=== PATIENT | female | born 1990 | race American Indian/Alaskan Native ===

== ENCOUNTER 2018-09-21 11:41 | Emergency (ER) | payer SELFPAY ==
[2018-09-21 12:03] VITALS: TEMP 98.5
[2018-09-21] MEDS ORDERED: Sodium Chloride 0.9% 1,000 ML IV SCH (13:00)
[2018-09-21 13:07] LABS: BASO % 0.7 % (0.0-2.0); EOS # 0.1 K/uL (0.0-0.7); EOS % 1.9 % (0.0-4.0); HEMOGLOBIN 11.4 g/dL (12.0-16.0); LYMPH # 3.2 K/uL (1.0-4.3); LYMPH % 47.7 % (20.0-40.0); MEAN CELL VOLUME 73.8 fl (81.0-99.0); MEAN CORPUSCULAR HEMOGLOBIN 23.7 pg (27.0-31.0); MEAN CORPUSCULAR HGB CONC 32.1 g/dL (33.0-37.0); MONO # 0.6 K/uL (0.0-0.8); MONO % 9.5 % (0.0-10.0); NEUT # 2.7 K/uL (1.8-7.0); NEUT % 40.2 % (50.0-75.0); NRBC % 0.1 % (0.0-0.0); RBC 4.81 Mil/uL (3.80-5.20); WHITE BLOOD COUNT 6.7 K/uL (4.8-10.8)
[2018-09-21 13:17] LABS: SQUAMOUS EPITHIAL 20 /hpf (0-5); URINE BILIRUBIN NEGATIVE (NEGATIVE); URINE BLOOD NEGATIVE (NEGATIVE); URINE CLARITY CLOUDY (Clear); URINE COLOR YELLOW (YELLOW); URINE GLUCOSE (UA) NEG (Normal); URINE LEUKOCYTE ESTERASE NEG Leu/uL (Negative); URINE PROTEIN 100 mg/dL (NEGATIVE)
[2018-09-21 13:19] LABS: ALB/GLOB RATIO 1.1 (1.0-2.1); ALBUMIN 3.9 g/dL (3.5-5.0); ALT/SGPT 28 U/L (9-52); AST/SGOT 40 U/L (14-36); BLOOD UREA NITROGEN 8 mg/dl (7-17); CALCIUM 9.8 mg/dL (8.4-10.2); GFR NON-AFRICAN AMERICAN > 60
[2018-09-21 17:23] VITALS: BP 147/87; RESP 18; O2SAT 99
[2018-09-21 17:31] VITALS: PULSE 118
--- NOTE | 2018-09-21 22:16 | CARD ---
APPROVED REPORT Date of service: 09/21/2018 EKG Measurement Heart [id number] IN 144P [id number] <Conclusion> Sinus tachycardia Otherwise normal ECG
--- NOTE | 2018-10-07 20:03 | ED PDOC ---
HPI: Abdomen Time Seen by Provider: 09/21/18 11:52 Chief Complaint (Nursing): Abdominal Pain History Per: Patient Onset/Duration Of Symptoms: Days Outside of [place] travel?: No Current Symptoms Are (Timing): Still Present Associated Symptoms: denies: Fever, Chills, Nausea, Vomiting Past Medical History Vital Signs: Last Vital Signs Temp 98.5 F 09/21/18 17:23 Pulse 118 H 09/21/18 17:23 Resp 18 09/21/18 17:23 BP 147/87 09/21/18 17:23 Pulse Ox 99 09/21/18 17:23 - Medical History PMH: No Chronic Diseases - Family History Family History: States: Unknown Family Hx Denies: No Known Family Hx - Immunization History Hx Tetanus Toxoid Vaccination: No Hx Influenza Vaccination: No Hx Pneumococcal Vaccination: No - Home Medications Home Medications: Ambulatory Orders Medication Instructions Recorded Propranolol [Inderal] 20 mg PO BID #60 tab 10/07/18 methIMAzole [Tapazole] 30 mg PO DAILY #90 tab 10/07/18 - Allergies Allergies/Adverse Reactions: Allergies Allergy/AdvReac Type Severity Reaction Status Date / Time No Known Allergies Allergy Verified 09/21/18 12:03 Review of Systems Constitutional: Negative for: Fever, Chills, Weight loss Gastrointestinal: Negative for: Nausea, Vomiting, Diarrhea Physical Exam - Reviewed Vital Signs Reviewed: Yes - Physical Exam Appears: Positive for: Well, Non-toxic Head Exam: Positive for: ATRAUMATIC Skin: Positive for: Normal Color, Warm, Dry Eye Exam: Positive for: Normal appearance, EOMI, PERRL Cardiovascular/Chest: Positive for: Regular Rate, Rhythm, Tachycardia. Negative for: Murmur Respiratory: Positive for: Normal Breath Sounds Gastrointestinal/Abdominal: Positive for: Soft, Tenderness (Minimal diffuse lower abdominal tenderness ) - Laboratory Results Result Diagrams: 09/21/18 12:30 09/21/18 12:30 - ECG O2 Sat by Pulse Oximetry: 99 Medical Decision Making Medical Decision Making: IV access established, labs sent, IVF given, IV Toradol given. Pt. feeling much better, abdomen soft with No tenderness. Pt. eating and drinking. Repeat HR 118-124. EKG ordered, ST, no arrhythmia. Pt. reports she's been told her HR has been high in past but no dx. Pt. denies palipations, cp. TSH ordered. TSH low, c/w hyperthyroid which explains tachycardia; pt. otherwise feels well. Stressed importance of close f/u with endocrine. Pt. agrees and will arrange f/u this week. Rx given Disposition - Clinical Impression Clinical Impression: Hyperthyroidism, Abdominal pain - Disposition Referrals: Pooja Gomez MD [Medical Doctor] - Disposition Time: 17:30 Condition: STABLE Instructions: Hyperthyroidism (Overactive Thyroid), Acute Abdomen (Belly Pain) Forms: [employer] (Slovak)
== END 2018-09-21 17:24 | disposition home or self-care (01) ==
LOC: H.ER 11:41
DX: E05.90 Thyrotoxicosis, unspecified without thyrotoxic crisis or storm (principal); R10.9 Unspecified abdominal pain; Z79.899 Other long term (current) drug therapy
CPT/HCPCS: 80053; 81003; 81025; 84443; 85025; 93005; 96360; 99284; J7030

== ENCOUNTER 2018-10-05 16:25 | Inpatient (IN) | payer MEDICAID, OTHER ==
[2018-10-05] MEDS ORDERED: Sodium Chloride 0.9% 1,000 ML IV STA ×2 (17:57→20:01)
[2018-10-05 18:59] LABS: BASO # 0.1 K/uL (0.0-0.2); EOS # 0.1 K/uL (0.0-0.7); EOS % 0.9 % (0.0-4.0); HEMOGLOBIN 11.8 g/dL (12.0-16.0); LYMPH # 2.4 K/uL (1.0-4.3); LYMPH % 41.6 % (20.0-40.0); MEAN CELL VOLUME 72.7 fl (81.0-99.0); MEAN CORPUSCULAR HGB CONC 32.9 g/dL (33.0-37.0); MEAN PLATELET VOLUME 7.4 fl (7.2-11.7); MONO # 0.5 K/uL (0.0-0.8); MONO % 8.6 % (0.0-10.0); NEUT # 2.7 K/uL (1.8-7.0); NEUT % 47.9 % (50.0-75.0); NRBC % 0.3 % (0.0-0.0); RBC 4.94 Mil/uL (3.80-5.20); RED CELL DISTRIBUTION WIDTH 13.8 % (11.5-14.5); WHITE BLOOD COUNT 5.7 K/uL (4.8-10.8)
[2018-10-05 19:06] LABS: VENOUS BLOOD GAS BASE EXCESS 3.1 mmol/L (0.0-2.0); VENOUS BLOOD GAS PCO2 51 mmHg (40-60); VENOUS BLOOD GAS PO2 37 mm/Hg (30-55); VENOUS BLOOD PH 7.37 (7.32-7.43)
--- NOTE | 2018-10-05 19:14 | ED PDOC ---
HPI: Chest Pain Time Seen by Provider: 10/05/18 17:15 Chief Complaint (Nursing): Chest Pain Chief Complaint (Provider): Chest Pain History Per: Patient History/Exam Limitations: no limitations Additional Complaint(s): 28 years old female returns to ED for 2nd visit for evaluation of chest pain. Patient reports she was seen here in this ED a few weeks ago for the same complaint of chest pain with mild dizziness and mild shortness of breath. She states last time she was here, she had elevated heart rate and was given metoprolol. Patient reports symptoms did not improve, which prompted ED visit again. She denies any recent travel, sick contact, leg swelling, cough or any other new symptoms. PMD: non provided Past Medical History Reviewed: Historical Data, Nursing Documentation, Vital Signs Vital Signs: Last Vital Signs Temp 98 F 10/05/18 16:36 Pulse 88 10/05/18 17:25 Resp 18 10/05/18 16:36 BP 152/90 H 10/05/18 16:36 Pulse Ox 99 10/05/18 16:36 - Medical History PMH: No Chronic Diseases - Surgical History Surgical History: No Surg Hx - Family History Family History: States: Unknown Family Hx - Social History Current smoker - smoking cessation education provided: No Alcohol: Social Drugs: Cannabis (Marijuana) - Immunization History Hx Tetanus Toxoid Vaccination: No Hx Influenza Vaccination: No Hx Pneumococcal Vaccination: No - Home Medications Home Medications: Ambulatory Orders Medication Instructions Recorded Propranolol [Inderal] 20 mg PO BID 14 Days #28 tab 09/21/18 - Allergies Allergies/Adverse Reactions: Allergies Allergy/AdvReac Type Severity Reaction Status Date / Time No Known Allergies Allergy Verified 09/21/18 12:03 Review of Systems ROS Statement: Except As Marked, All Systems Reviewed And Found Negative Cardiovascular: Positive for: Chest Pain Respiratory: Positive for: Shortness of Breath. Negative for: Cough Musculoskeletal: Negative for: Leg Pain (or swelling) Neurological: Positive for: Dizziness Physical Exam - Reviewed Nursing Documentation Reviewed: Yes Vital Signs Reviewed: Yes - Physical Exam Appears: Positive for: Non-toxic, No Acute Distress Head Exam: Positive for: ATRAUMATIC, NORMOCEPHALIC Skin: Positive for: Normal Color, Warm, Dry Eye Exam: Positive for: Normal appearance, EOMI, PERRL Neck: Positive for: Normal, Painless ROM, Supple Cardiovascular/Chest: Positive for: Regular Rate, Rhythm, Tachycardia (on monitor) Respiratory: Positive for: Normal Breath Sounds. Negative for: Wheezing Gastrointestinal/Abdominal: Positive for: Normal Exam, Soft. Negative for: Tenderness Back: Positive for: Normal Inspection. Negative for: L CVA Tenderness, R CVA Tenderness Extremity: Positive for: Normal ROM. Negative for: Pedal Edema, Swelling Neurologic/Psych: Positive for: Alert, Oriented (x3) - Laboratory Results Result Diagrams: 10/05/18 18:45 10/05/18 18:45 - ECG O2 Sat by Pulse Oximetry: 99 (RA) Pulse Ox Interpretation: Normal Medical Decision Making Medical Decision Making: Time: 1748 A/P: workup for tachycardia with dizziness and shortness of breath --No physical exam indication for lower extremity DVT --Based on unresolved symptoms, will send d-dimer and troponin. If positive, will get chest CT --Reevaluation 21:45 Pt with elevated T4 and T3. Spoke with Dr. Gomez (commercial installer) who recommends admission and beginning methimazole (20 TID). PT to be admitted to the hospitalist, Dr. Freitas. Scribe Attestation: Documented by Yazmin Weems, acting as a scribe for Brittani Celestin MD. Provider Scribe Attestation: All medical record entries made by the Scribe were at my direction and personally dictated by me. I have reviewed the chart and agree that the record a ccurately reflects my personal performance of the history, physical exam, medical decision making, and the department course for this patient. I have also personally directed, reviewed, and agree with the discharge instructions and disposition. Disposition - Disposition Forms: Medical Envelope (Welsh)
[2018-10-05 19:18] LABS: BLOOD UREA NITROGEN 9 mg/dl (7-17); CALCIUM 9.9 mg/dL (8.4-10.2); GFR NON-AFRICAN AMERICAN > 60
[2018-10-05 19:29] LABS: INR 1.2; PROTHROMBIN TIME 13.3 Seconds (9.8-13.1)
[2018-10-05 19:31] LABS: PARTIAL THROMBOPLASTIN TIME 34.6 Seconds (25.6-37.1)
[2018-10-05 19:38] LABS: D DIMER < 200 ng/mlDDU (0-230)
[2018-10-05 20:29] LABS: SQUAMOUS EPITHIAL 4 /hpf (0-5); URINE BILIRUBIN NEGATIVE (NEGATIVE); URINE CLARITY SLIGHTY-CLOUDY (Clear); URINE COLOR YELLOW (YELLOW); URINE GLUCOSE (UA) NEG (Normal); URINE LEUKOCYTE ESTERASE NEG Leu/uL (Negative); URINE PROTEIN NEGATIVE (NEGATIVE); URINE UROBILINOGEN 0.2-1.0 mg/dL (0.2-1.0)
[2018-10-05 20:32] LABS: URINE BLOOD MODERATE (NEGATIVE)
[2018-10-05 20:44] LABS: BARBITURATES, UR NEGATIVE (NEGATIVE); BENZODIAZEPINES, UR NEGATIVE (NEGATIVE); OPIATES, UR NEGATIVE (NEGATIVE); PHENCYCLIDINE, UR NEGATIVE (NEGATIVE)
[2018-10-05 21:09] LABS: T3 5.88 nmol/L (1.49-2.60)
[2018-10-05 21:23] LABS: T4 > 24.9 ug/dl (5.5-11.0)
--- NOTE | 2018-10-05 22:58 | CP.PCM.HP ---
<Sultan Karey - Last Filed: 10/06/18 00:42> History of Present Illness - History of Present Illness History of Present Illness: CC: Chest pain HPI: 28 yo female with pmhx of anemia and tachyarrhythmia presents to [facility] ED with complaints of intermittent chest pain (4/10 initially, now 2/10 during exam) that radiates to left arm associated chest palpitation, dizziness and mild shortness of breath for 2 weeks. States chest pain is exacerbated by eating sugary food and alleviated by taking warm shower. Reports + tremor for over a year and feeling warm for few weeks. Denies any weight loss, diarrhea, nausea,vomiting, blurry vision, PND or leg swelling. Denies taking any herbal supplements or weight loss products. Patient has hx tachycardia 4 years ago during her and states she had EKG and normal echocardiogram but never been on any medications. Patient was seen in [facility] ED on 09/21/18, found to have low TSH and tachycardia. Patient was dischared home with Propranonol 20 mg BID and was advised to f/u with technical aid. Patient made appointment for 10/06/[address] Thomas at [place]. ROS: 12 systems reviewed and negative except as mentioned in HPI PMD: None Pmhx: anemia, tachyarrhythmia Pshx: none Familyhx: Mother: DMII, maternal aunt: HTN, denies any family hx thyroid CA. Social hx: Denies smoking cigarettes or drugs uses. EtOH use socially. Homemake r, lives with . Medications: propranolol 20 mg po bid and multivitamin. ED Course: CBC, BMP, PT/INR, D-dimer and UDS: unremarkable T4: >24.9, Free T3: 5.88, TSH on 09/21/18: <0.02 EKG: sinus tachy @[address]/T wave changes CXR: unremarkable Endocrine consult: Dr. Gomez IV fluids bolus 2 liters, Methimazole 20 mg. Present on Admission - Present on Admission Any Indicators Present on Admission: No Review of Systems - Review of Systems Review of Systems: ROS: 12 systems reviewed and negative except as mentioned in HPI Past Patient History - Past Social History Alcohol: Social Drugs: Cannabis (Marijuana) - PSYCHIATRIC Hx Substance Use: Yes - SURGICAL HISTORY Hx Surgeries: No - ANESTHESIA Hx Anesthesia: No Meds Allergies/Adverse Reactions: Allergies Allergy/AdvReac Type Severity Reaction Status Date / Time No Known Allergies Allergy Verified 09/21/18 12:03 Physical Exam - Constitutional Appears: Well, Non-toxic, No Acute Distress - Head Exam Head Exam: ATRAUMATIC, NORMAL INSPECTION, NORMOCEPHALIC - Eye Exam Eye Exam: EOMI, Normal appearance, PERRL. absent: Periorbital swelling, Scleral icterus Pupil Exam: PERRL Additional comments: No exophthalmos or lid lag seen - ENT Exam ENT Exam: Mucous Membranes Moist, Normal Oropharynx, TM's Normal Bilaterally Additional comments: B/L mild swelling 2+ tonsils. No erythema or exudate - Neck Exam Neck exam: Positive for: Full Rom, Normal Inspection. Negative for: Lymphadenopathy, Tenderness, Thyromegaly - Respiratory Exam Respiratory Exam: Clear to Auscultation Bilateral, NORMAL BREATHING PATTERN. absent: Rhonchi, Wheezes - Cardiovascular Exam Cardiovascular Exam: Tachycardia, REGULAR RHYTHM, +S1, +S2 - GI/Abdominal Exam GI & Abdominal Exam: Normal Bowel Sounds, Soft. absent: Guarding, Rebound, Tenderness - Extremities Exam Extremities exam: Positive for: full ROM, normal capillary refill, normal inspection, pedal pulses present. Negative for: calf tenderness, pedal edema - Back Exam Back exam: NORMAL INSPECTION. absent: CVA tenderness (L), CVA tenderness (R) - Neurological Exam Neurological exam: Alert, CN II-XII Intact, Oriented x3 - Psychiatric Exam Psychiatric exam: Normal Affect, Normal Mood - Skin Skin Exam: Dry, Normal Color, Warm Results - Vital Signs Recent Vital Signs: Last Vital Signs Temp 98 F 10/05/18 16:36 Pulse 116 H 10/05/18 20:11 Resp 21 10/05/18 20:11 BP 111/59 L 10/05/18 20:11 Pulse Ox 99 10/05/18 21:49 - Labs Result Diagrams: 10/05/18 18:45 10/05/18 18:45 Labs: Laboratory Results - last 24 hr 10/05/18 10/05/18 10/05/18 18:45 18:45 18:45 WBC 5.7 RBC 4.94 Hgb 11.8 L Hct 35.9 MCV 72.7 L MCH 24.0 L MCHC 32.9 L RDW 13.8 Plt Count 307 MPV 7.4 Neut % (Auto) 47.9 L Lymph % (Auto) 41.6 H Kent % (Auto) 8.6 Eos % (Auto) 0.9 Baso % (Auto) 1.0 Neut # (Auto) 2.7 Lymph # (Auto) 2.4 Kent # (Auto) 0.5 Eos # (Auto) 0.1 Baso # (Auto) 0.1 PT 13.3 H INR 1.2 APTT 34.6 D-Dimer, Quantitative < 200 pO2 VBG pH VBG pCO2 VBG HCO3 VBG Total CO2 VBG O2 Sat (Calc) VBG Base Excess VBG Potassium Glucose Lactate FiO2 Sodium 140 Potassium 4.2 Chloride 103 Carbon Dioxide 27 Anion Gap 14 BUN 9 Creatinine 0.4 L Est GFR ( Amer) > 60 Est GFR (Non-Af Amer) > 60 Random Glucose 106 H Calcium 9.9 Troponin I < 0.0120 Thyroxine (T4) Total T3 Venous Blood Potassium Urine Color Urine Clarity Urine pH Ur Specific [place] Urine Protein Urine Glucose (UA) Urine Ketones Urine Blood Urine Nitrate Urine Bilirubin Urine Urobilinogen Ur Leukocyte Esterase Urine RBC (Auto) Urine Microscopic WBC Ur Squamous Epith Cells Urine Opiates Screen Urine Methadone Screen Ur Barbiturates Screen Ur Phencyclidine Scrn Ur Amphetamines Screen U Benzodiazepines Scrn U Oth Cocaine Metabols U Cannabinoids Screen Blood Type Blood Type Confirm Antibody Screen BBK History Checked 10/05/18 10/05/18 10/05/18 18:45 19:01 19:48 WBC RBC Hgb Hct MCV MCH MCHC RDW Plt Count MPV Neut % (Auto) Lymph % (Auto) Kent % (Auto) Eos % (Auto) Baso % (Auto) Neut # (Auto) Lymph # (Auto) Kent # (Auto) Eos # (Auto) Baso # (Auto) PT INR APTT D-Dimer, Quantitative pO2 37 VBG pH 7.37 VBG pCO2 51 VBG HCO3 26.6 VBG Total CO2 31.1 H VBG O2 Sat (Calc) 75.8 H VBG Base Excess 3.1 H VBG Potassium 3.9 Glucose 105 Lactate 0.9 FiO2 21.0 Sodium 138.0 Potassium Chloride 104.0 Carbon Dioxide Anion Gap BUN Creatinine Est GFR ( Amer) Est GFR (Non-Af Amer) Random Glucose Calcium Troponin I Thyroxine (T4) Total T3 Venous Blood Potassium 3.9 Urine Color Urine Clarity Urine pH Ur Specific [place] Urine Protein Urine Glucose (UA) Urine Ketones Urine Blood Urine Nitrate Urine Bilirubin Urine Urobilinogen Ur Leukocyte Esterase Urine RBC (Auto) Urine Microscopic WBC Ur Squamous Epith Cells Urine Opiates Screen Urine Methadone Screen Ur Barbiturates Screen Ur Phencyclidine Scrn Ur Amphetamines Screen U Benzodiazepines Scrn U Oth Cocaine Metabols U Cannabinoids Screen Blood Type B POSITIVE Blood Type Confirm B POSITIVE Antibody Screen Negative BBK History Checked No verified bt 10/05/18 10/05/18 10/05/18 20:15 20:15 20:18 WBC RBC Hgb Hct MCV MCH MCHC RDW Plt Count MPV Neut % (Auto) Lymph % (Auto) Kent % (Auto) Eos % (Auto) Baso % (Auto) Neut # (Auto) Lymph # (Auto) Kent # (Auto) Eos # (Auto) Baso # (Auto) PT INR APTT D-Dimer, Quantitative pO2 VBG pH VBG pCO2 VBG HCO3 VBG Total CO2 VBG O2 Sat (Calc) VBG Base Excess VBG Potassium Glucose Lactate FiO2 Sodium Potassium Chloride Carbon Dioxide Anion Gap BUN Creatinine Est GFR ( Amer) Est GFR (Non-Af Amer) Random Glucose Calcium Troponin I Thyroxine (T4) > 24.9 H Total T3 5.88 H Venous Blood Potassium Urine Color Yellow Urine Clarity Slighty-cloudy Urine pH 6.0 Ur Specific [place] 1.017 Urine Protein Negative Urine Glucose (UA) Neg Urine Ketones Negative Urine Blood Moderate Urine Nitrate Negative Urine Bilirubin Negative Urine Urobilinogen 0.2-1.0 Ur Leukocyte Esterase Neg Urine RBC (Auto) 10 H Urine Microscopic WBC 1 Ur Squamous Epith Cells 4 Urine Opiates Screen Negative Urine Methadone Screen Negative Ur Barbiturates Screen Negative Ur Phencyclidine Scrn Negative Ur Amphetamines Screen Negative U Benzodiazepines Scrn Negative U Oth Cocaine Metabols Negative U Cannabinoids Screen Negative Blood Type Blood Type Confirm Antibody Screen BBK History Checked Assessment & Plan - Assessment and Plan (Free Text) Assessment: Assessment: 28 yo female with pmhx of anemia and tachyarrhythmia presents to [facility] with complaints of intermittent chest pain (4/10) that radiates to left arm, chest palpitation, dizziness and mild shortness of breath for 2 weeks. Patient's TSH was <0.02 two weeks ago and today, T4: >24.9, Free T3: 5.88. Patient is admitted for symptomatic hyperthyroidism. Plan: Chest pain and tachyarrhythmia likely secondary to symptomatic hyperthyroidism -T4: >24.9, Free T3: 5.88, TSH on 09/21/18: <0.02 -EKG: sinus tachy @[address]/T wave changes -Endocrine Consult, Dr. Gomez, consult appreciated -Methimazole 20 mg po TID -Propranolol 20 mmg po TID -F/U CMP, TSH, T4, TSI, TPO ab, AM cortisol -f/u Thryoid US -troponin x 1 neg, D-dimer neg. Microcytic anemia -H&H 11.8/35.9 -stable -f/u Outpatient for workup DVT prophylaxis: -Lovenox 40 mg SC GI prophylaxis: -Protonix 40 mg po QD Diet: -regular diet Code status: -full code Patient seen, examined and plan d/w Dr. Fortino Eden, [id number] <Willie Freitas - Last Filed: 10/06/18 02:48> Results - Vital Signs Recent Vital Signs: Last Vital Signs Temp 98.2 F 10/05/18 23:13 Pulse 112 H 10/05/18 23:13 Resp 24 10/05/18 23:13 BP 107/88 10/05/18 23:13 Pulse Ox 100 10/05/18 23:13 - Labs Result Diagrams: 10/05/18 18:45 10/05/18 18:45 Labs: Laboratory Results - last 24 hr 10/05/18 10/05/18 10/05/18 18:45 18:45 18:45 WBC 5.7 RBC 4.94 Hgb 11.8 L Hct 35.9 MCV 72.7 L MCH 24.0 L MCHC 32.9 L RDW 13.8 Plt Count 307 MPV 7.4 Neut % (Auto) 47.9 L Lymph % (Auto) 41.6 H [place] % (Auto) 8.6 Eos % (Auto) 0.9 Baso % (Auto) 1.0 Neut # (Auto) 2.7 Lymph # (Auto) 2.4 Kent # (Auto) 0.5 Eos # (Auto) 0.1 Baso # (Auto) 0.1 PT 13.3 H INR 1.2 APTT 34.6 D-Dimer, Quantitative < 200 pO2 VBG pH VBG pCO2 VBG HCO3 VBG Total CO2 VBG O2 Sat (Calc) VBG Base Excess VBG Potassium Glucose Lactate FiO2 Sodium 140 Potassium 4.2 Chloride 103 Carbon Dioxide 27 Anion Gap 14 BUN 9 Creatinine 0.4 L Est GFR ( Amer) > 60 Est GFR (Non-Af Amer) > 60 Random Glucose 106 H Calcium 9.9 Troponin I < 0.0120 Thyroxine (T4) Total T3 Venous Blood Potassium Urine Color Urine Clarity Urine pH Ur Specific [place] Urine Protein Urine Glucose (UA) Urine Ketones Urine Blood Urine Nitrate Urine Bilirubin Urine Urobilinogen Ur Leukocyte Esterase Urine RBC (Auto) Urine Microscopic WBC Ur Squamous Epith Cells Urine Opiates Screen Urine Methadone Screen Ur Barbiturates Screen Ur Phencyclidine Scrn Ur Amphetamines Screen U Benzodiazepines Scrn U Oth Cocaine Metabols U Cannabinoids Screen Blood Type Blood Type Confirm Antibody Screen BBK History Checked 10/05/18 10/05/18 10/05/18 18:45 19:01 19:48 WBC RBC Hgb Hct MCV MCH MCHC RDW Plt Count MPV Neut % (Auto) Lymph % (Auto) [place] % (Auto) Eos % (Auto) Baso % (Auto) Neut # (Auto) Lymph # (Auto) [place] # (Auto) Eos # (Auto) Baso # (Auto) PT INR APTT D-Dimer, Quantitative pO2 37 VBG pH 7.37 VBG pCO2 51 VBG HCO3 26.6 VBG Total CO2 31.1 H VBG O2 Sat (Calc) 75.8 H VBG Base Excess 3.1 H VBG Potassium 3.9 Glucose 105 Lactate 0.9 FiO2 21.0 Sodium 138.0 Potassium Chloride 104.0 Carbon Dioxide Anion Gap BUN Creatinine Est GFR ( Amer) Est GFR (Non-Af Amer) Random Glucose Calcium Troponin I Thyroxine (T4) Total T3 Venous Blood Potassium 3.9 Urine Color Urine Clarity Urine pH Ur Specific [place] Urine Protein Urine Glucose (UA) Urine Ketones Urine Blood Urine Nitrate Urine Bilirubin Urine Urobilinogen Ur Leukocyte Esterase Urine RBC (Auto) Urine Microscopic WBC Ur Squamous Epith Cells Urine Opiates Screen Urine Methadone Screen Ur Barbiturates Screen Ur Phencyclidine Scrn Ur Amphetamines Screen U Benzodiazepines Scrn U Oth Cocaine Metabols U Cannabinoids Screen Blood Type B POSITIVE Blood Type Confirm B POSITIVE Antibody Screen Negative BBK History Checked No verified bt 10/05/18 10/05/18 10/05/18 20:15 20:15 20:18 WBC RBC Hgb Hct MCV MCH MCHC RDW Plt Count MPV Neut % (Auto) Lymph % (Auto) [place] % (Auto) Eos % (Auto) Baso % (Auto) Neut # (Auto) Lymph # (Auto) [place] # (Auto) Eos # (Auto) Baso # (Auto) PT INR APTT D-Dimer, Quantitative pO2 VBG pH VBG pCO2 VBG HCO3 VBG Total CO2 VBG O2 Sat (Calc) VBG Base Excess VBG Potassium Glucose Lactate FiO2 Sodium Potassium Chloride Carbon Dioxide Anion Gap BUN Creatinine Est GFR ( Amer) Est GFR (Non-Af Amer) Random Glucose Calcium Troponin I Thyroxine (T4) > 24.9 H Total T3 5.88 H Venous Blood Potassium Urine Color Yellow Urine Clarity Slighty-cloudy Urine pH 6.0 Ur Specific [place] 1.017 Urine Protein Negative Urine Glucose (UA) Neg Urine Ketones Negative Urine Blood Moderate Urine Nitrate Negative Urine Bilirubin Negative Urine Urobilinogen 0.2-1.0 Ur Leukocyte Esterase Neg Urine RBC (Auto) 10 H Urine Microscopic WBC 1 Ur Squamous Epith Cells 4 Urine Opiates Screen Negative Urine Methadone Screen Negative Ur Barbiturates Screen Negative Ur Phencyclidine Scrn Negative Ur Amphetamines Screen Negative U Benzodiazepines Scrn Negative U Oth Cocaine Metabols Negative U Cannabinoids Screen Negative Blood Type Blood Type Confirm Antibody Screen BBK History Checked Attending/Attestation - Attestation I have personally seen and examined this patient.: Yes I have fully participated in the care of the patient.: Yes I have reviewed all pertinent clinical information: Yes Notes (Text): 10/06/18 02:34 I saw, examined and discussed this case with Dr Eden. I agree with the assessment and plan outlined above. This is a 28 years old female who was at this ED 2 weeks ago with Chest Pain dizziness and mild Shortness of breath. She returns withthe same symptoms with an initial Bloos Pressure of 152/80mmHg and a T4 of >24.9 with T3 -5.88. She is being treated for Symptomatic Hyperthyroidism,with Methimazole and Propranolol. Endocrinology Dr Gomez was consulted.we will follow TSH, Thyroid stimulating ImmuniologyTo r/o thyroiditis and Graves Disease. Thyroid Ultra Sound is ordered . r/o ACS with serial troponin and EKG Willie Freitas MD
--- NOTE | 2018-10-06 02:53 | CON ---
DATE: 10/05/2018 LOCATION: [facility]. HISTORY OF PRESENT ILLNESS: This is a 28-year-old female with persistent tachycardia and progressively worsening shortness of breath, seen a week or so ago in the ER and given metoprolol medication, but continued to have the same aforementioned symptoms and presented here once again today for evaluation and subsequent admission. She was found to have elevated thyroxine values as noted with marked hyperthyroidism and is being referred now for endocrine evaluation and management. PAST MEDICAL HISTORY: As mentioned above, essentially unremarkable. SOCIAL HISTORY: The patient has supportive family. No known substance use. REVIEW OF SYSTEMS: As mentioned above. Admits to generalized body weakness with easy fatigability and tiredness and suboptimal energy level. Also admits to episodic anxiety episodes with marked with marked insomnia and disrupted sleep patterns. Admits to precordial chest pain with progressively worsening palpitations and supervening shortness of breath, especially on the day of admission. Her oral intake has been variable with occasional dyspepsia and admits to episodic soft stools as noted. No recent alterations of urinary patterns. PHYSICAL EXAMINATION: GENERAL: This is an average built female, in no apparent distress. VITAL SIGNS: Blood pressure of 140/80, pulse of 100 beats per minute and regular, temperature 98, respirations 20, height is 5 feet 6 inches, weight is 185 pounds. HEENT: Head is normocephalic. Eyes anicteric with pink conjunctivae. Funduscopy is not possible at this time. Ears, nose, and throat otherwise normal. NECK: Supple. Thyroid gland is firm and nontender with no cervical adenopathy. No thyroid bruits. HEART: Hyperdynamic precordium. S1, S2 is rapid and regular. LUNGS: Clear to auscultation. ABDOMEN: Flat, soft with positive bowel sounds. EXTREMITIES: No peripheral edema. Pulses are +2 bilaterally. LABORATORY DATA: Chemistry showed a BUN of 9, sodium 140, potassium 4.2, chloride 103, CO2 27, glucose 106 and creatinine 0.4. Her thyroxine level is greater than 24.9 with a TSH pending. T3 is 5.88. ASSESSMENT: This is a 28-year-old female with overt thyrotoxicosis and presenting here with marked hyperthyroidism both historically, clinically and biochemically, most likely related to underlying autoimmune thyroiditis. There is also supervening sinus tachycardia causing the aforementioned hyperadrenergic manifestations thereof. PLAN OF MANAGEMENT: We will initiate medical therapy at a high dose of Tapazole given as 20 mg p.o. t.i.d. after meals as ordered. We will obtain a comprehensive thyroid hormonal profile to include thyroid antibodies, i.e., thyroid stimulating immunoglobulin and thyroid peroxidase antibody, which will confirm and/or indicate the presence of underlying thyroid autoimmunity. We will continue beta-blockers preferably, propranolol therapy as ordered. We will obtain serial thyroid studies and adjust her dose regimen accordingly. We will follow. Pooja Gomez MD [facility] # [id number]
[2018-10-06 07:06] LABS: ALBUMIN 3.8 g/dL (3.5-5.0); ALT/SGPT 26 U/L (9-52); AST/SGOT 27 U/L (14-36); BLOOD UREA NITROGEN 6 mg/dl (7-17); CALCIUM 9.8 mg/dL (8.4-10.2); GFR NON-AFRICAN AMERICAN > 60; T4 > 24.9 ug/dl (5.5-11.0)
[2018-10-06] MEDS: Pantoprazole 40 mg EC Tab PO SCH (09:03)
[2018-10-06] MEDS: Enoxaparin 40 mg Syringe SC SCH (09:11)
--- NOTE | 2018-10-06 11:17 | CP.PCM.PN ---
<Dae Lares - Last Filed: 10/06/18 14:37> Subjective - Date & Time of Evaluation Date of Evaluation: 10/06/18 Time of Evaluation: 09:00 - Subjective Subjective: Pt seen and examined at bedside resting comfortably. Tachycardia is intermittent. Current hr 97. Pt was evaluted by Dr. Gomez and orders placed. No acute events while in the ER. Objective - Vital Signs/Intake and Output Vital Signs (last 24 hours): Temp Pulse Resp BP Pulse Ox 98.4 F 121 H 17 120/62 99 10/06/18 07:59 10/06/18 10:01 10/06/18 07:59 10/06/18 10:01 10/06/18 07:59 - Medications Medications: Current Medications Acetaminophen (Tylenol 325mg Tab) 650 mg PO Q6 PRN PRN Reason: Pain, Mild (1-3) Enoxaparin Sodium (Lovenox) 40 mg SC DAILY [facility]; Protocol Last Admin: 10/06/18 09:11 Dose: 40 mg Methimazole (Tapazole) 20 mg PO TID [facility] Last Admin: 10/06/18 09:09 Dose: 20 mg Ondansetron HCl (Zofran Inj) 4 mg IVP Q6 PRN PRN Reason: Nausea/Vomiting Pantoprazole Sodium (Protonix Ec Tab) 40 mg PO DAILY [facility] Last Admin: 10/06/18 09:03 Dose: 40 mg Propranolol HCl (Inderal) 20 mg PO TID [facility] Last Admin: 10/06/18 09:04 Dose: 20 mg - Labs Labs: 10/05/18 18:45 10/06/18 05:30 PT 13.3 Seconds (9.8-13.1) H 10/05/18 18:45 INR 1.2 10/05/18 18:45 APTT 34.6 Seconds (25.6-37.1) 10/05/18 18:45 - Constitutional Appears: Well, Non-toxic - Eye Exam Eye Exam: EOMI - ENT Exam ENT Exam: Mucous Membranes Moist - Neck Exam Neck Exam: Full ROM - Respiratory Exam Respiratory Exam: Clear to Ausculation Bilateral, NORMAL BREATHING PATTERN. absent: Wheezes - Cardiovascular Exam Cardiovascular Exam: Tachycardia, +S1, +S2 - GI/Abdominal Exam GI & Abdominal Exam: Soft, Normal Bowel Sounds. absent: Tenderness - Neurological Exam Neurological Exam: Alert, Awake, CN II-XII Intact, Oriented x3 - Psychiatric Exam Psychiatric exam: Normal Affect, Normal Mood Assessment and Plan - Assessment and Plan (Free Text) Assessment: 28 yo female with pmhx of anemia and tachyarrhythmia presents to [facility] with complaints of intermittent chest pain (4/10) that radiates to left arm, chest palpitation, dizziness and mild shortness of breath for 2 weeks. Patient's TSH was <0.02 two weeks ago and on admission, T4: >24.9, Free T3: 5.88. Patient is admitted for symptomatic hyperthyroidism. Plan: Chest pain and tachyarrhythmia likely secondary to symptomatic hyperthyroidism -T4: >24.9, Free T3: 5.88, TSH on 09/21/18: <0.02 -10/06/2018: TSH: <0.02, T4: > 24.9, AM cortisol: 0.6 -troponin x 3 neg, D-dimer neg. -EKG: sinus tachy @[address]/T wave changes -Endocrine: Dr. Gomez: r/o thyroiditis and graves disease; comprehensive thyroid hormone profile -Thryoid US: Enlarged, heterogeneous gland with out focal abnormality -Tapazole 20 mg po TID -Propranolol 20 mg po TID -F/U CMP, TSI, TPO ab -monitor vitals Microcytic anemia -H&H 11.8/35.9 -stable -f/u Outpatient for workup DVT prophylaxis: -Lovenox 40 mg SC GI prophylaxis: -Protonix 40 mg po QD Diet: -regular diet Code status: -full code Case dw Dr. Benjamín Lares MD PGY2 <Yamilex Butts - Last Filed: 10/06/18 15:38> Objective - Vital Signs/Intake and Output Vital Signs (last 24 hours): Temp Pulse Resp BP Pulse Ox 98.7 F 91 H 18 120/78 98 10/06/18 14:45 10/06/18 14:45 10/06/18 14:45 10/06/18 14:45 10/06/18 14:45 - Medications Medications: Current Medications Acetaminophen (Tylenol 325mg Tab) 650 mg PO Q6 PRN PRN Reason: Pain, Mild (1-3) Enoxaparin Sodium (Lovenox) 40 mg SC DAILY [facility]; Protocol Last Admin: 10/06/18 09:11 Dose: 40 mg Methimazole (Tapazole) 20 mg PO TID [facility] Last Admin: 10/06/18 12:45 Dose: 20 mg Ondansetron HCl (Zofran Inj) 4 mg IVP Q6 PRN PRN Reason: Nausea/Vomiting Pantoprazole Sodium (Protonix Ec Tab) 40 mg PO DAILY [facility] Last Admin: 10/06/18 09:03 Dose: 40 mg Propranolol HCl (Inderal) 20 mg PO TID [facility] Last Admin: 10/06/18 12:42 Dose: 20 mg - Labs Labs: 10/05/18 18:45 10/06/18 05:30 PT 13.3 Seconds (9.8-13.1) H 10/05/18 18:45 INR 1.2 10/05/18 18:45 APTT 34.6 Seconds (25.6-37.1) 10/05/18 18:45 Attending/Attestation - Attestation I have personally seen and examined this patient.: Yes I have fully participated in the care of the patient.: Yes I have reviewed all pertinent clinical information, including history, physical exam and plan: Yes
--- NOTE | 2018-10-06 11:54 | RAD ---
Date of service: 10/05/2018 HISTORY: possible admission COMPARISON: No prior. FINDINGS: LUNGS: No active pulmonary disease. PLEURA: No significant pleural effusion identified, no pneumothorax apparent. CARDIOVASCULAR: No atherosclerotic calcification present Normal. OSSEOUS STRUCTURES: No significant abnormalities. VISUALIZED UPPER ABDOMEN: Normal. OTHER FINDINGS: None. IMPRESSION: No active disease.
--- NOTE | 2018-10-06 13:12 | US ---
Date of service: 10/06/2018 HISTORY: Hyperthyroidism TECHNIQUE: Sonographic evaluation of the thyroid gland. COMPARISON: FINDINGS: RIGHT LOBE: Measures 2.6 x 2.7 x 5.9 cm. Heterogenous echotexture, normal vascularity Nodules: None LEFT LOBE: Measures 2.8 x 2.8 x 6.7 cm. Heterogenous echotexture, normal vascularity Nodules: None ISTHMUS: Measures 10.0 mm. Nodules: None OTHER FINDINGS: None . IMPRESSION: Enlarged, heterogeneous gland without focal abnormality.
--- NOTE | 2018-10-07 00:18 | PN ---
DATE: 10/06/2018 ENDOCRINOLOGY FOLLOWUP NOTE LOCATION: Room 418, bed 2. SUBJECTIVE: This is a 28-year-old female with overt thyrotoxicosis, presenting here with marked hyperthyroidism, noted both historically, clinically, and biochemically, and is now being followed closely for metabolic management. She is tolerating the high dose medical therapy as initiated and given. LABORATORY DATA: Her latest T4 or thyroxine level is greater than 24.9 with a T3 of 5.88 and a cortisol level of 0.6. Her TSH is less than 0.02. ASSESSMENT AND PLAN: So at this time, we will initiate hydrocortisone given as 50 mg IV every 8 hours as ordered. We will continue the Tapazole given as 20 mg p.o. t.i.d. after meals as ordered. We will obtain serial chemistries and supplement accordingly as needed. We will follow. Pooja Gomez MD
[2018-10-07] MEDS ORDERED: Hydrocortisone- 100 MG in Sodium Chloride 0.9% 100 ML IV SCH (01:00)
[2018-10-07 05:44] LABS: MEAN CELL VOLUME 72.1 fl (81.0-99.0); MEAN CORPUSCULAR HEMOGLOBIN 24.2 pg (27.0-31.0); MEAN CORPUSCULAR HGB CONC 33.6 g/dL (33.0-37.0); RBC 4.97 Mil/uL (3.80-5.20); RED CELL DISTRIBUTION WIDTH 13.8 % (11.5-14.5); WHITE BLOOD COUNT 10.7 K/uL (4.8-10.8)
[2018-10-07 06:10] LABS: BLOOD UREA NITROGEN 10 mg/dl (7-17); CALCIUM 10.3 mg/dL (8.4-10.2); GFR NON-AFRICAN AMERICAN > 60
--- NOTE | 2018-10-07 06:57 | CP.PCM.PN ---
Subjective - Date & Time of Evaluation Date of Evaluation: 10/07/18 Time of Evaluation: 06:56 - Subjective Subjective: Pt seen and examined at bedside: Denies acute overnight events Pending discharge. Appreciate endo recs Objective - Vital Signs/Intake and Output Vital Signs (last 24 hours): Temp Pulse Resp BP Pulse Ox 97.6 F 95 H 18 126/77 99 10/07/18 05:00 10/07/18 05:00 10/07/18 05:00 10/07/18 05:00 10/07/18 05:00 - Medications Medications: Current Medications Acetaminophen (Tylenol 325mg Tab) 650 mg PO Q6 PRN PRN Reason: Pain, Mild (1-3) Last Admin: 10/06/18 23:21 Dose: 650 mg Enoxaparin Sodium (Lovenox) 40 mg SC DAILY [facility]; Protocol Last Admin: 10/06/18 09:11 Dose: 40 mg Hydrocortisone Sodium Succinate (Solu-Cortef) 100 mg IV Q8H [facility] Last Admin: 10/07/18 04:34 Dose: 100 mg Methimazole (Tapazole) 20 mg PO TID [facility] Last Admin: 10/06/18 16:16 Dose: 20 mg Ondansetron HCl (Zofran Inj) 4 mg IVP Q6 PRN PRN Reason: Nausea/Vomiting Pantoprazole Sodium (Protonix Ec Tab) 40 mg PO DAILY [facility] Last Admin: 10/06/18 09:03 Dose: 40 mg Propranolol HCl (Inderal) 20 mg PO TID [facility] Last Admin: 10/06/18 16:16 Dose: 20 mg - Labs Labs: 10/07/18 05:05 10/07/18 05:05 PT 13.3 Seconds (9.8-13.1) H 10/05/18 18:45 INR 1.2 10/05/18 18:45 APTT 34.6 Seconds (25.6-37.1) 10/05/18 18:45
[2018-10-07] MEDS: Pantoprazole 40 mg EC Tab PO SCH (08:50)
[2018-10-07] MEDS: Enoxaparin 40 mg Syringe SC SCH (08:50)
[2018-10-07 12:41] VITALS: BP 124/74; PULSE 120; RESP 20; TEMP 98.2; O2SAT 99
--- NOTE | 2018-10-07 12:47 | CP.PCM.DIS ---
Provider - Provider Date of Admission: 10/05/18 22:03 Attending physician: Willie Freitas Consults: 10/05/18 21:56 Endocrinology Consult Stat Comment: Consulting Provider: Pooja Gomez Consulting Physician: Pooja Gomez Reason for Consult: hyperthyroidism Time Spent in preparation of Discharge (in minutes): 30 Hospital Course - Lab Results Lab Results: Most Recent Lab Values WBC 10.7 K/uL (4.8-10.8) D 10/07/18 05:05 RBC 4.97 Mil/uL (3.80-5.20) 10/07/18 05:05 Hgb 12.0 g/dL (12.0-16.0) 10/07/18 05:05 Hct 35.8 % (34.0-47.0) 10/07/18 05:05 MCV 72.1 fl (81.0-99.0) L 10/07/18 05:05 MCH 24.2 pg (27.0-31.0) L 10/07/18 05:05 MCHC 33.6 g/dL (33.0-37.0) 10/07/18 05:05 RDW 13.8 % (11.5-14.5) 10/07/18 05:05 Plt Count 317 K/uL (130-400) 10/07/18 05:05 MPV 7.4 fl (7.2-11.7) 10/05/18 18:45 Neut % (Auto) 47.9 % (50.0-75.0) L 10/05/18 18:45 Lymph % (Auto) 41.6 % (20.0-40.0) H 10/05/18 18:45 [place] % (Auto) 8.6 % (0.0-10.0) 10/05/18 18:45 Eos % (Auto) 0.9 % (0.0-4.0) 10/05/18 18:45 Baso % (Auto) 1.0 % (0.0-2.0) 10/05/18 18:45 Neut # (Auto) 2.7 K/uL (1.8-7.0) 10/05/18 18:45 Lymph # (Auto) 2.4 K/uL (1.0-4.3) 10/05/18 18:45 [place] # (Auto) 0.5 K/uL (0.0-0.8) 10/05/18 18:45 Eos # (Auto) 0.1 K/uL (0.0-0.7) 10/05/18 18:45 Baso # (Auto) 0.1 K/uL (0.0-0.2) 10/05/18 18:45 PT 13.3 Seconds (9.8-13.1) H 10/05/18 18:45 INR 1.2 10/05/18 18:45 APTT 34.6 Seconds (25.6-37.1) 10/05/18 18:45 D-Dimer, Quantitative < 200 ng/mlDDU (0-230) 10/05/18 18:45 pO2 37 mm/Hg (30-55) 10/05/18 19:01 VBG pH 7.37 (7.32-7.43) 10/05/18 19:01 VBG pCO2 51 mmHg (40-60) 10/05/18 19:01 VBG HCO3 26.6 mmol/L 10/05/18 19:01 VBG Total CO2 31.1 mmol/L (22-28) H 10/05/18 19:01 VBG O2 Sat (Calc) 75.8 % (40-65) H 10/05/18 19:01 VBG Base Excess 3.1 mmol/L (0.0-2.0) H 10/05/18 19:01 VBG Potassium 3.9 mmol/L (3.6-5.2) 10/05/18 19:01 Sodium 138.0 mmol/L (132-148) 10/05/18 19:01 Chloride 104.0 mmol/L (98-107) 10/05/18 19:01 Glucose 105 mg/dL (65-105) 10/05/18 19:01 Lactate 0.9 mmol/L (0.7-2.1) 10/05/18 19:01 FiO2 21.0 % 10/05/18 19:01 Sodium 141 mmol/l (132-148) 10/07/18 05:05 Potassium 4.0 MMOL/L (3.6-5.0) 10/07/18 05:05 Chloride 102 mmol/L (98-107) 10/07/18 05:05 Carbon Dioxide 27 mmol/L (22-30) 10/07/18 05:05 Anion Gap 16 (10-20) 10/07/18 05:05 BUN 10 mg/dl (7-17) 10/07/18 05:05 Creatinine 0.5 mg/dl (0.7-1.2) L 10/07/18 05:05 Est GFR ( Amer) > 60 10/07/18 05:05 Est GFR (Non-Af Amer) > 60 10/07/18 05:05 Random Glucose 105 mg/dL (65-105) 10/07/18 05:05 Calcium 10.3 mg/dL (8.4-10.2) H 10/07/18 05:05 Total Bilirubin 0.3 mg/dl (0.2-1.3) 10/06/18 05:30 AST 27 U/L (14-36) 10/06/18 05:30 ALT 26 U/L (9-52) 10/06/18 05:30 Alkaline Phosphatase 116 U/L (38-126) 10/06/18 05:30 Troponin I < 0.0120 ng/mL (0.00-0.120) 10/06/18 09:30 Total Protein 7.6 G/DL (6.3-8.2) 10/06/18 05:30 Albumin 3.8 g/dL (3.5-5.0) 10/06/18 05:30 Globulin 3.9 gm/dL (2.2-3.9) 10/06/18 05:30 Albumin/Globulin Ratio 1.0 (1.0-2.1) 10/06/18 05:30 Thyroxine (T4) > 24.9 ug/dl (5.5-11.0) H 10/06/18 05:30 Total T3 5.88 nmol/L (1.49-2.60) H 10/05/18 20:18 TSH 3rd Generation < 0.02 mIU/ML (0.46-4.68) L 10/06/18 05:30 Cortisol AM Sample 0.6 ug/dL (4.46-22.7) L 10/06/18 05:30 Venous Blood Potassium 3.9 mmol/L (3.6-5.2) 10/05/18 19:01 Urine Color Yellow (YELLOW) 10/05/18 20:15 Urine Clarity Slighty-cloudy (Clear) 10/05/18 20:15 Urine pH 6.0 (5.0-8.0) 10/05/18 20:15 Ur Specific [place] 1.017 (1.003-1.030) 10/05/18 20:15 Urine Protein Negative mg/dL (NEGATIVE) 10/05/18 20:15 Urine Glucose (UA) Neg mg/dL (Normal) 10/05/18 20:15 Urine Ketones Negative mg/dL (NEGATIVE) 10/05/18 20:15 Urine Blood Moderate (NEGATIVE) 10/05/18 20:15 Urine Nitrate Negative (NEGATIVE) 10/05/18 20:15 Urine Bilirubin Negative (NEGATIVE) 10/05/18 20:15 Urine Urobilinogen 0.2-1.0 mg/dL (0.2-1.0) 10/05/18 20:15 Ur Leukocyte Esterase Neg [place]/uL (Negative) 10/05/18 20:15 Urine RBC (Auto) 10 /hpf (0-3) H 10/05/18 20:15 Urine Microscopic WBC 1 /hpf (0-5) 10/05/18 20:15 Ur Squamous Epith Cells 4 /hpf (0-5) 10/05/18 20:15 Urine Opiates Screen Negative (NEGATIVE) 10/05/18 20:15 Urine Methadone Screen Negative (NEGATIVE) 10/05/18 20:15 Ur Barbiturates Screen Negative (NEGATIVE) 10/05/18 20:15 Ur Phencyclidine Scrn Negative (NEGATIVE) 10/05/18 20:15 Ur Amphetamines Screen Negative (NEGATIVE) 10/05/18 20:15 U Benzodiazepines Scrn Negative (NEGATIVE) 10/05/18 20:15 U Oth Cocaine Metabols Negative (NEGATIVE) 10/05/18 20:15 U Cannabinoids Screen Negative (NEGATIVE) 10/05/18 20:15 Blood Type B POSITIVE 10/05/18 18:45 Blood Type Confirm B POSITIVE 10/05/18 19:48 Antibody Screen Negative 10/05/18 18:45 BBK History Checked No verified bt 10/05/18 18:45 Discharge Exam - Head Exam Head Exam: ATRAUMATIC, NORMAL INSPECTION, NORMOCEPHALIC Discharge Plan - Discharge Medications Prescriptions: methIMAzole [Tapazole] 30 mg PO DAILY #90 tab Propranolol [Inderal] 20 mg PO BID #60 tab - Follow Up Plan Condition: FAIR Disposition: HOME/ ROUTINE Instructions: Chest Pain (DC), Hyperthyroidism (Overactive Thyroid) (DC) Additional Instructions: ff up [facility] Clinic in 1-2 wks Oct 13 at 09:40 [address] Dawn. Referrals: [facility] [place] [Outside]
--- NOTE | 2018-10-07 15:18 | CP.PCM.DIS ---
<Vivek Antunez - Last Filed: 10/07/18 15:31> Provider - Provider Date of Admission: 10/05/18 22:03 Attending physician: Willie Freitas Consults: 10/05/18 21:56 Endocrinology Consult Stat Comment: Consulting Provider: Pooja Gomez Consulting Physician: Pooja Gomez Reason for Consult: hyperthyroidism Time Spent in preparation of Discharge (in minutes): 30 Diagnosis - Discharge Diagnosis (1) Hyperthyroidism Status: Acute (2) Abdominal pain Status: Acute Hospital Course - Lab Results Lab Results: Most Recent Lab Values WBC 10.7 K/uL (4.8-10.8) D 10/07/18 05:05 RBC 4.97 Mil/uL (3.80-5.20) 10/07/18 05:05 Hgb 12.0 g/dL (12.0-16.0) 10/07/18 05:05 Hct 35.8 % (34.0-47.0) 10/07/18 05:05 MCV 72.1 fl (81.0-99.0) L 10/07/18 05:05 MCH 24.2 pg (27.0-31.0) L 10/07/18 05:05 MCHC 33.6 g/dL (33.0-37.0) 10/07/18 05:05 RDW 13.8 % (11.5-14.5) 10/07/18 05:05 Plt Count 317 K/uL (130-400) 10/07/18 05:05 MPV 7.4 fl (7.2-11.7) 10/05/18 18:45 Neut % (Auto) 47.9 % (50.0-75.0) L 10/05/18 18:45 Lymph % (Auto) 41.6 % (20.0-40.0) H 10/05/18 18:45 Travis % (Auto) 8.6 % (0.0-10.0) 10/05/18 18:45 Eos % (Auto) 0.9 % (0.0-4.0) 10/05/18 18:45 Baso % (Auto) 1.0 % (0.0-2.0) 10/05/18 18:45 Neut # (Auto) 2.7 K/uL (1.8-7.0) 10/05/18 18:45 Lymph # (Auto) 2.4 K/uL (1.0-4.3) 10/05/18 18:45 Travis # (Auto) 0.5 K/uL (0.0-0.8) 10/05/18 18:45 Eos # (Auto) 0.1 K/uL (0.0-0.7) 10/05/18 18:45 Baso # (Auto) 0.1 K/uL (0.0-0.2) 10/05/18 18:45 PT 13.3 Seconds (9.8-13.1) H 10/05/18 18:45 INR 1.2 10/05/18 18:45 APTT 34.6 Seconds (25.6-37.1) 10/05/18 18:45 D-Dimer, Quantitative < 200 ng/mlDDU (0-230) 10/05/18 18:45 pO2 37 mm/Hg (30-55) 10/05/18 19:01 VBG pH 7.37 (7.32-7.43) 10/05/18 19:01 VBG pCO2 51 mmHg (40-60) 10/05/18 19:01 VBG HCO3 26.6 mmol/L 10/05/18 19:01 VBG Total CO2 31.1 mmol/L (22-28) H 10/05/18 19:01 VBG O2 Sat (Calc) 75.8 % (40-65) H 10/05/18 19:01 VBG Base Excess 3.1 mmol/L (0.0-2.0) H 10/05/18 19:01 VBG Potassium 3.9 mmol/L (3.6-5.2) 10/05/18 19:01 Sodium 138.0 mmol/L (132-148) 10/05/18 19:01 Chloride 104.0 mmol/L (98-107) 10/05/18 19:01 Glucose 105 mg/dL (65-105) 10/05/18 19:01 Lactate 0.9 mmol/L (0.7-2.1) 10/05/18 19:01 FiO2 21.0 % 10/05/18 19:01 Sodium 141 mmol/l (132-148) 10/07/18 05:05 Potassium 4.0 MMOL/L (3.6-5.0) 10/07/18 05:05 Chloride 102 mmol/L (98-107) 10/07/18 05:05 Carbon Dioxide 27 mmol/L (22-30) 10/07/18 05:05 Anion Gap 16 (10-20) 10/07/18 05:05 BUN 10 mg/dl (7-17) 10/07/18 05:05 Creatinine 0.5 mg/dl (0.7-1.2) L 10/07/18 05:05 Est GFR ( Amer) > 60 10/07/18 05:05 Est GFR (Non-Af Amer) > 60 10/07/18 05:05 Random Glucose 105 mg/dL (65-105) 10/07/18 05:05 Calcium 10.3 mg/dL (8.4-10.2) H 10/07/18 05:05 Total Bilirubin 0.3 mg/dl (0.2-1.3) 10/06/18 05:30 AST 27 U/L (14-36) 10/06/18 05:30 ALT 26 U/L (9-52) 10/06/18 05:30 Alkaline Phosphatase 116 U/L (38-126) 10/06/18 05:30 Troponin I < 0.0120 ng/mL (0.00-0.120) 10/06/18 09:30 Total Protein 7.6 G/DL (6.3-8.2) 10/06/18 05:30 Albumin 3.8 g/dL (3.5-5.0) 10/06/18 05:30 Globulin 3.9 gm/dL (2.2-3.9) 10/06/18 05:30 Albumin/Globulin Ratio 1.0 (1.0-2.1) 10/06/18 05:30 Thyroxine (T4) > 24.9 ug/dl (5.5-11.0) H 10/06/18 05:30 Total T3 5.88 nmol/L (1.49-2.60) H 10/05/18 20:18 TSH 3rd Generation < 0.02 mIU/ML (0.46-4.68) L 10/06/18 05:30 Cortisol AM Sample 0.6 ug/dL (4.46-22.7) L 10/06/18 05:30 Venous Blood Potassium 3.9 mmol/L (3.6-5.2) 10/05/18 19:01 Urine Color Yellow (YELLOW) 10/05/18 20:15 Urine Clarity Slighty-cloudy (Clear) 10/05/18 20:15 Urine pH 6.0 (5.0-8.0) 10/05/18 20:15 Ur Specific [place] 1.017 (1.003-1.030) 10/05/18 20:15 Urine Protein Negative mg/dL (NEGATIVE) 10/05/18 20:15 Urine Glucose (UA) Neg mg/dL (Normal) 10/05/18 20:15 Urine Ketones Negative mg/dL (NEGATIVE) 10/05/18 20:15 Urine Blood Moderate (NEGATIVE) 10/05/18 20:15 Urine Nitrate Negative (NEGATIVE) 10/05/18 20:15 Urine Bilirubin Negative (NEGATIVE) 10/05/18 20:15 Urine Urobilinogen 0.2-1.0 mg/dL (0.2-1.0) 10/05/18 20:15 Ur Leukocyte Esterase Neg Paulino/uL (Negative) 10/05/18 20:15 Urine RBC (Auto) 10 /hpf (0-3) H 10/05/18 20:15 Urine Microscopic WBC 1 /hpf (0-5) 10/05/18 20:15 Ur Squamous Epith Cells 4 /hpf (0-5) 10/05/18 20:15 Urine Opiates Screen Negative (NEGATIVE) 10/05/18 20:15 Urine Methadone Screen Negative (NEGATIVE) 10/05/18 20:15 Ur Barbiturates Screen Negative (NEGATIVE) 10/05/18 20:15 Ur Phencyclidine Scrn Negative (NEGATIVE) 10/05/18 20:15 Ur Amphetamines Screen Negative (NEGATIVE) 10/05/18 20:15 U Benzodiazepines Scrn Negative (NEGATIVE) 10/05/18 20:15 U Oth Cocaine Metabols Negative (NEGATIVE) 10/05/18 20:15 U Cannabinoids Screen Negative (NEGATIVE) 10/05/18 20:15 Blood Type B POSITIVE 10/05/18 18:45 Blood Type Confirm B POSITIVE 10/05/18 19:48 Antibody Screen Negative 10/05/18 18:45 BBK History Checked No verified bt 10/05/18 18:45 - Hospital Course Hospital Course: 28F with pmhx of anemia and tachyarrhythmia presented to the ED at [facility] with complaints of intermittent chest pain, palpitations, and mild shortness of breath for 2 weeks. She was admitted for symptomatic hyperthyroidism. Her TSH was <0.02 two weeks ago and on admission, T4: >24.9, Free T3: 5.88. While in house her troponins x3 were negative and her EKG showed sinus tachy with no ST/T wave changes. Her thyroid US results showed enlarged, heterogenous gland without focal abnormality. Dr. Gomez, endocrine, was consulted and patient was started on hydrocortisone 50 mg IV every 8 hrs and tapazole 20 mg PO TID after meals. She will be discharged on tapazole 30 mg PO daily and propanolol 20 mg PO BID and will follow up as outpatient on 10/13 in the clinic. Her TSH will be monitored on outpatient basis. - Date & Time of H&P Date of H&P: 10/07/18 Time of H&P: 15:18 Discharge Exam - Head Exam Head Exam: ATRAUMATIC, NORMAL INSPECTION, NORMOCEPHALIC - Eye Exam Eye Exam: EOMI, PERRL - ENT Exam ENT Exam: Mucous Membranes Moist - Neck Exam Neck exam: Full Rom - Respiratory Exam Respiratory Exam: Clear to PA & Lateral, NORMAL BREATHING PATTERN - Cardiovascular Exam Cardiovascular Exam: Tachycardia, +S1, +S2 - GI/Abdominal Exam GI & Abdominal Exam: Normal Bowel Sounds, Soft. absent: Tenderness - Extremities Exam Extremities exam: normal capillary refill, pedal pulses present - Neurological Exam Neurological exam: Alert, CN II-XII Intact, Oriented x3 - Psychiatric Exam Psychiatric exam: Normal Affect, Normal Mood - Skin Skin Exam: Dry, Normal Color, Warm Discharge Plan - Discharge Medications Prescriptions: methIMAzole [Tapazole] 30 mg PO DAILY #90 tab Propranolol [Inderal] 20 mg PO BID #60 tab - Follow Up Plan Condition: FAIR Disposition: HOME/ ROUTINE Instructions: Chest Pain (DC), Hyperthyroidism (Overactive Thyroid) (DC), Acute Abdominal Pain (DC), Acute Abdominal Pain (GEN) Additional Instructions: ff up FP Clinic in 1-2 wks Oct 13 at 09:40 Dr. Dawn. Referrals: [facility] [Outside] Clinical Quality Measures - Date & Time of Discharge Summary Date of Discharge Summary: 10/07/18 Time of Discharge Summary: 15:18 <Yamilex Butts - Last Filed: 10/07/18 16:09> Provider - Provider Date of Admission: 10/05/18 22:03 Attending physician: Willie Freitas Consults: 10/05/18 21:56 Endocrinology Consult Stat Comment: Consulting Provider: Pooja Gomez Consulting Physician: Pooja Gomez Reason for Consult: hyperthyroidism Hospital Course - Lab Results Lab Results: Most Recent Lab Values WBC 10.7 K/uL (4.8-10.8) D 10/07/18 05:05 RBC 4.97 Mil/uL (3.80-5.20) 10/07/18 05:05 Hgb 12.0 g/dL (12.0-16.0) 10/07/18 05:05 Hct 35.8 % (34.0-47.0) 10/07/18 05:05 MCV 72.1 fl (81.0-99.0) L 10/07/18 05:05 MCH 24.2 pg (27.0-31.0) L 10/07/18 05:05 MCHC 33.6 g/dL (33.0-37.0) 10/07/18 05:05 RDW 13.8 % (11.5-14.5) 10/07/18 05:05 Plt Count 317 K/uL (130-400) 10/07/18 05:05 MPV 7.4 fl (7.2-11.7) 10/05/18 18:45 Neut % (Auto) 47.9 % (50.0-75.0) L 10/05/18 18:45 Lymph % (Auto) 41.6 % (20.0-40.0) H 10/05/18 18:45 Travis % (Auto) 8.6 % (0.0-10.0) 10/05/18 18:45 Eos % (Auto) 0.9 % (0.0-4.0) 10/05/18 18:45 Baso % (Auto) 1.0 % (0.0-2.0) 10/05/18 18:45 Neut # (Auto) 2.7 K/uL (1.8-7.0) 10/05/18 18:45 Lymph # (Auto) 2.4 K/uL (1.0-4.3) 10/05/18 18:45 Travis # (Auto) 0.5 K/uL (0.0-0.8) 10/05/18 18:45 Eos # (Auto) 0.1 K/uL (0.0-0.7) 10/05/18 18:45 Baso # (Auto) 0.1 K/uL (0.0-0.2) 10/05/18 18:45 PT 13.3 Seconds (9.8-13.1) H 10/05/18 18:45 INR 1.2 10/05/18 18:45 APTT 34.6 Seconds (25.6-37.1) 10/05/18 18:45 D-Dimer, Quantitative < 200 ng/mlDDU (0-230) 10/05/18 18:45 pO2 37 mm/Hg (30-55) 10/05/18 19:01 VBG pH 7.37 (7.32-7.43) 10/05/18 19:01 VBG pCO2 51 mmHg (40-60) 10/05/18 19:01 VBG HCO3 26.6 mmol/L 10/05/18 19:01 VBG Total CO2 31.1 mmol/L (22-28) H 10/05/18 19:01 VBG O2 Sat (Calc) 75.8 % (40-65) H 10/05/18 19:01 VBG Base Excess 3.1 mmol/L (0.0-2.0) H 10/05/18 19:01 VBG Potassium 3.9 mmol/L (3.6-5.2) 10/05/18 19:01 Sodium 138.0 mmol/L (132-148) 10/05/18 19:01 Chloride 104.0 mmol/L (98-107) 10/05/18 19:01 Glucose 105 mg/dL (65-105) 10/05/18 19:01 Lactate 0.9 mmol/L (0.7-2.1) 10/05/18 19:01 FiO2 21.0 % 10/05/18 19:01 Sodium 141 mmol/l (132-148) 10/07/18 05:05 Potassium 4.0 MMOL/L (3.6-5.0) 10/07/18 05:05 Chloride 102 mmol/L (98-107) 10/07/18 05:05 Carbon Dioxide 27 mmol/L (22-30) 10/07/18 05:05 Anion Gap 16 (10-20) 10/07/18 05:05 BUN 10 mg/dl (7-17) 10/07/18 05:05 Creatinine 0.5 mg/dl (0.7-1.2) L 10/07/18 05:05 Est GFR ( Amer) > 60 10/07/18 05:05 Est GFR (Non-Af Amer) > 60 10/07/18 05:05 Random Glucose 105 mg/dL (65-105) 10/07/18 05:05 Calcium 10.3 mg/dL (8.4-10.2) H 10/07/18 05:05 Total Bilirubin 0.3 mg/dl (0.2-1.3) 10/06/18 05:30 AST 27 U/L (14-36) 10/06/18 05:30 ALT 26 U/L (9-52) 10/06/18 05:30 Alkaline Phosphatase 116 U/L (38-126) 10/06/18 05:30 Troponin I < 0.0120 ng/mL (0.00-0.120) 10/06/18 09:30 Total Protein 7.6 G/DL (6.3-8.2) 10/06/18 05:30 Albumin 3.8 g/dL (3.5-5.0) 10/06/18 05:30 Globulin 3.9 gm/dL (2.2-3.9) 10/06/18 05:30 Albumin/Globulin Ratio 1.0 (1.0-2.1) 10/06/18 05:30 Thyroxine (T4) > 24.9 ug/dl (5.5-11.0) H 10/06/18 05:30 Total T3 5.88 nmol/L (1.49-2.60) H 10/05/18 20:18 TSH 3rd Generation < 0.02 mIU/ML (0.46-4.68) L 10/06/18 05:30 Cortisol AM Sample 0.6 ug/dL (4.46-22.7) L 10/06/18 05:30 Venous Blood Potassium 3.9 mmol/L (3.6-5.2) 10/05/18 19:01 Urine Color Yellow (YELLOW) 10/05/18 20:15 Urine Clarity Slighty-cloudy (Clear) 10/05/18 20:15 Urine pH 6.0 (5.0-8.0) 10/05/18 20:15 Ur Specific [place] 1.017 (1.003-1.030) 10/05/18 20:15 Urine Protein Negative mg/dL (NEGATIVE) 10/05/18 20:15 Urine Glucose (UA) Neg mg/dL (Normal) 10/05/18 20:15 Urine Ketones Negative mg/dL (NEGATIVE) 10/05/18 20:15 Urine Blood Moderate (NEGATIVE) 10/05/18 20:15 Urine Nitrate Negative (NEGATIVE) 10/05/18 20:15 Urine Bilirubin Negative (NEGATIVE) 10/05/18 20:15 Urine Urobilinogen 0.2-1.0 mg/dL (0.2-1.0) 10/05/18 20:15 Ur Leukocyte Esterase Neg Paulino/uL (Negative) 10/05/18 20:15 Urine RBC (Auto) 10 /hpf (0-3) H 10/05/18 20:15 Urine Microscopic WBC 1 /hpf (0-5) 10/05/18 20:15 Ur Squamous Epith Cells 4 /hpf (0-5) 10/05/18 20:15 Urine Opiates Screen Negative (NEGATIVE) 10/05/18 20:15 Urine Methadone Screen Negative (NEGATIVE) 10/05/18 20:15 Ur Barbiturates Screen Negative (NEGATIVE) 10/05/18 20:15 Ur Phencyclidine Scrn Negative (NEGATIVE) 10/05/18 20:15 Ur Amphetamines Screen Negative (NEGATIVE) 10/05/18 20:15 U Benzodiazepines Scrn Negative (NEGATIVE) 10/05/18 20:15 U Oth Cocaine Metabols Negative (NEGATIVE) 10/05/18 20:15 U Cannabinoids Screen Negative (NEGATIVE) 10/05/18 20:15 Blood Type B POSITIVE 10/05/18 18:45 Blood Type Confirm B POSITIVE 10/05/18 19:48 Antibody Screen Negative 10/05/18 18:45 BBK History Checked No verified bt 10/05/18 18:45 Attending/Attestation - Attestation I have personally seen and examined this patient.: Yes I have fully participated in the care of the patient.: Yes I have reviewed all pertinent clinical information, including history, physical exam and plan: Yes Notes (Text): Diagnoses: 1. Hyperthyroidism 2. Sinus Tachycardia - HR rate now down to 90- 110 - Pt asymptomatic - will d/c home on Methimazole and Propranolol
--- NOTE | 2018-10-07 23:13 | PN ---
DATE: 10/07/2018 LOCATION: Room 401. SUBJECTIVE: This is a 28-year-old female with overt thyrotoxicosis, presenting here with tachycardia and marked hyperthyroidism and is now being followed closely for metabolic management. Her latest thyroid study showed a T4 of over 24.9 and a TSH of less than 0.02 and a serum cortisol level of 0.6. We will continue the IV steroids as ordered today as she is eventually planned for discharge later this afternoon as noted. LABORATORY DATA: Her chemistry showed a BUN of 10, sodium 141, potassium 4, chloride 102, CO2 of 27, glucose 105 and creatinine 0.5. Her calcium level is 10.3 which is very common in patients with overt thyrotoxicosis. PLAN OF MANAGEMENT: So at this time, we will continue for eventual discharge a modified dosing to enhance convenience and compliance of Tapazole given as 30 mg once daily in the morning as ordered. We will continue her propranolol given as 20 mg b.i.d. as ordered. She will follow with her medical doctor for outpatient and ongoing thyroid medical management. Pooja Gomez MD
[2018-10-08 15:42] LABS: TSI 316 % baseline (<140)
== END 2018-10-07 14:46 | disposition home or self-care (01) | DRG 424 ==
LOC: H.ER 16:25 → H.ERHOLD 22:03 → H.TEL 10-06 14:40
PROVIDERS: ADMIT Internal Medicine; ATTEND Internal Medicine
DX: E05.90 Thyrotoxicosis, unspecified without thyrotoxic crisis or storm (principal); E06.3 Autoimmune thyroiditis; Z79.899 Other long term (current) drug therapy; Z83.3 Family history of diabetes mellitus; D64.9 Anemia, unspecified; R00.2 Palpitations; R00.0 Tachycardia, unspecified

== ENCOUNTER 2019-02-19 13:26 | Emergency (ER) | payer OTHER ==
[2019-02-19 13:41] VITALS: RESP 18; TEMP 98.5
[2019-02-19] MEDS ORDERED: Sodium Chloride 0.9% 1,000 ML IV STA (14:33)
--- NOTE | 2019-02-19 14:39 | ED PDOC ---
HPI: Chest Pain Time Seen by Provider: 02/19/19 14:14 Chief Complaint (Nursing): Chest Pain Chief Complaint (Provider): Chest pain History Per: Patient History/Exam Limitations: no limitations Onset/Duration Of Symptoms: Days (Sep 2018) Additional Complaint(s): Pt. with left chest pain going to the shoulder. Ongoing for a while now (Sep 2018). Seen by er and PCP. Was admitted and put on propranolol and thyroid meds. No long distance travel, leg pain, dyspnea, weakness, bc pills, abd pain, nausea, vomit, diarrhea. Past Medical History Reviewed: Nursing Documentation, Vital Signs Vital Signs: Last Vital Signs Temp 98.5 F 02/19/19 13:38 Pulse 77 02/19/19 13:38 Resp 18 02/19/19 13:38 BP 118/74 02/19/19 13:38 Pulse Ox 98 02/19/19 13:38 - Medical History PMH: Hyperthyroidism - Family History Family History: States: Unknown Family Hx - Immunization History Hx Tetanus Toxoid Vaccination: No Hx Influenza Vaccination: No Hx Pneumococcal Vaccination: No - Home Medications Home Medications: Ambulatory Orders Medication Instructions Recorded Propranolol [Inderal] 20 mg PO BID #60 tab 10/07/18 methIMAzole [Tapazole] 30 mg PO DAILY #90 tab 10/07/18 - Allergies Allergies/Adverse Reactions: Allergies Allergy/AdvReac Type Severity Reaction Status Date / Time No Known Allergies Allergy Verified 02/19/19 13:38 Review of Systems ROS Statement: Except As Marked, All Systems Reviewed And Found Negative Cardiovascular: Positive for: Chest Pain Physical Exam - Reviewed Nursing Documentation Reviewed: Yes Vital Signs Reviewed: Yes - Physical Exam Appears: Positive for: Non-toxic, No Acute Distress Head Exam: Positive for: ATRAUMATIC, NORMAL INSPECTION, NORMOCEPHALIC Skin: Positive for: Normal Color, Warm, DRY Eye Exam: Positive for: EOMI, Normal appearance, PERRL ENT: Positive for: Normal ENT Inspection Neck: Positive for: Normal, Painless ROM Cardiovascular/Chest: Positive for: Regular Rate, Rhythm, Chest Non Tender. Negative for: Edema Respiratory: Positive for: CNT, Normal Breath Sounds Gastrointestinal/Abdominal: Positive for: Normal Exam, Soft Back: Positive for: Normal Inspection. Negative for: L CVA Tenderness, R CVA Tenderness Extremity: Positive for: Normal ROM. Negative for: Tenderness, Pedal Edema Neurological/Psych: Positive for: Awake, Alert, Normal Tone - ECG ECG: Positive for: Interpreted By Me, Viewed By Me ECG Rhythm: Positive for: Normal QRS, Normal ST Segment, Sinus Rhythm O2 Sat by Pulse Oximetry: 98 - Progress ED Course And Treament: 1451: Dr. Wells to take over care. Fu with labs and imaging. Disposition - Clinical Impression Clinical Impression: Chest pain - Patient ED Disposition Is Patient to be Admitted: Transfer of Care - Disposition Disposition: Transfer of Care Disposition Time: 14:00 Condition: STABLE
[2019-02-19 14:59] LABS: BASO # 0.1 K/uL (0.0-0.2); BASO % 1.1 % (0.0-2.0); EOS # 0.2 K/uL (0.0-0.7); EOS % 3.1 % (0.0-4.0); HEMOGLOBIN 11.6 g/dL (12.0-16.0); LYMPH # 2.7 K/uL (1.0-4.3); LYMPH % 40.3 % (20.0-40.0); MEAN CELL VOLUME 78.8 fl (81.0-99.0); MEAN CORPUSCULAR HEMOGLOBIN 25.6 pg (27.0-31.0); MEAN CORPUSCULAR HGB CONC 32.5 g/dL (33.0-37.0); MEAN PLATELET VOLUME 7.2 fl (7.2-11.7); MONO # 0.6 K/uL (0.0-0.8); MONO % 8.6 % (0.0-10.0); NEUT # 3.1 K/uL (1.8-7.0); NEUT % 46.9 % (50.0-75.0); NRBC % 0.2 % (0.0-0.0); RBC 4.52 Mil/uL (3.80-5.20); RED CELL DISTRIBUTION WIDTH 14.4 % (11.5-14.5); WHITE BLOOD COUNT 6.7 K/uL (4.8-10.8)
[2019-02-19 15:07] LABS: BLOOD UREA NITROGEN 8 mg/dl (7-17); CALCIUM 9.4 mg/dL (8.4-10.2); GFR NON-AFRICAN AMERICAN > 60
--- NOTE | 2019-02-19 15:47 | ED PDOC ---
- Laboratory Results Result Diagrams: 02/19/19 14:45 02/19/19 14:45 Lab Results: Troponin I < 0.0120 ng/mL (0.00-0.120) 02/19/19 14:45 - ECG O2 Sat by Pulse Oximetry: 98 Medical Decision Making Medical Decision Makin: Dr. Garces signed of to Dr. Chairez. Pending labs, chest x-rays, reassessment, and final ER disposition. 1545 Pt's TSH low, but otherwise not presenting with signs of hyperthyroidism. No emergently significant abnormalities. STable for discharge. Dw pt findings and advised followup clinic by Saturday Disposition - Clinical Impression Clinical Impression: Chest pain - POA Present On Arrival: None - Disposition Referrals: [facility] [Outside] (CALL CLINIC TODAY TO SCHEDULE FOLLOWUP APPOINTMENT BY SATURDAY) Disposition: Routine/Home Disposition Time: 15:53 Condition: STABLE Instructions: Chest Pain That Is Not Caused by the Heart (DC)
[2019-02-19 16:10] VITALS: BP 142/76; PULSE 70; O2SAT 99
--- NOTE | 2019-02-20 09:51 | CARD ---
APPROVED REPORT Date of service: 02/19/2019 EKG Measurement Heart [id number] <Conclusion> Normal sinus rhythm with sinus arrhythmia Normal ECG
== END 2019-02-19 16:23 | disposition home or self-care (01) ==
LOC: H.ER 13:26
DX: R07.89 Other chest pain (principal)
CPT/HCPCS: 80048; 81025; 84439; 84443; 84484; 85025; 93005; 96374; 99284; J1885; J7030